=== PATIENT | male | born 1945 | race Caucasian/White ===

== ENCOUNTER 2025-02-03 10:40 | Day surgery (SDC) | payer MEDICARE, SELFPAY ==
[2025-02-02 12:05] VITALS: BMI 21.7
[2025-02-03] VITALS (10 sets, daily range): BP systolic 121–169; BP diastolic 72–98; PULSE 60–76; RESP 11–17; TEMP 36.2–36.8; O2SAT 98–100; BMI 24.0
[2025-02-03] MEDS: SODIUM CHLORIDE 0.9% 500 ML 500 ML 20 ML IV (12:04)
[2025-02-03] MEDS: fentaNYL CIT INJ 50 mCg/ML AMP 2ML (ASD USE ONLY) IVP (12:06)
[2025-02-03] MEDS: MIDAZOLAM INJ 1 MG/ML VIAL 2 ML (ASD USE ONLY) 2 MG IVP (12:06)
== END 2025-02-03 13:35 | disposition home or self-care (01) ==
LOC: SASD 12:52
PROVIDERS: PCP Family Medicine; Referring Provider Specialist; Visit Provider Specialist
PROC: 0DBE8ZX Excision of Large Intestine, Via Natural or Artificial Opening Endoscopic, Diagnostic (ICD-10-PCS; CPT 45380; principal; 2025-02-03 11:15)
DX: Z12.11 Encounter for screening for malignant neoplasm of colon (principal); D12.8 Benign neoplasm of rectum; K64.1 Second degree hemorrhoids
CPT/HCPCS: 45385; A4649; J1200; J2250; J3010; J7999